=== PATIENT | female | born 2000 | race African-American/Black ===

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

== ENCOUNTER 2024-12-26 16:18 | Emergency (ER) | payer OTHER ==
[2024-12-26 16:25] VITALS: BP 113/55; PULSE 87; RESP 18; TEMP 98.8; BMI 17.0
[2024-12-26] MEDS ORDERED: IBUPROFEN 600 MG TABLET (FP) PO ONE (16:56)
[2024-12-26] MEDS: IBUPROFEN 600 MG TABLET (FP) PO ONE (17:10)
[2024-12-26] MEDS ORDERED: ACETAMINOPHEN 500 MG TABLET (FP) ONE (19:58)
[2024-12-26] MEDS: ACETAMINOPHEN 500 MG TABLET (FP) PO ONE (20:00)
== END 2024-12-26 20:07 | disposition home or self-care (01) ==
LOC: JERFT 16:18 → JER 16:18 → JERFT 20:07
DX: S82.001A Unspecified fracture of right patella, initial encounter for closed fracture (principal); W01.0XXA Fall on same level from slipping, tripping and stumbling without subsequent striking against object, initial encounter
CPT/HCPCS: 73562-TC-RT-FY; 73700-TC-RT; 99284-25